=== PATIENT | female | born 1990 | race Caucasian/White ===

== ENCOUNTER 2018-01-12 05:38 | Day surgery (SDC) | payer OTHER ==
[~2018-01-12] VITALS: Ht 152.4 cm; Wt 75.4 kg
[2018-01-12 06:28] LABS: HEMATOCRIT 43.5 % (36.0-46.0); HEMOGLOBIN 15.1 G/DL (11.9-15.5); MCH 31.5 PG (29.0-34.0); MCHC 34.7 G/DL (30.0-36.0); MCV 90.6 FL (83-99); PLATELET COUNT 229 K/uL (156-360); RBC DIS.WIDTH-CV 12.1 % (11.8-14.6); RBC DIS.WIDTH-SD 40.2 % (39-53); WHITE BLOOD COUNT 7.8 K/uL (4.1-10.2)
[2018-01-12 06:37] VITALS: BP 132/77
[2018-01-12 06:38] LABS: ALBUMIN 4.4 g/dL (3.2-4.8); CHLORIDE 107 mEq/L (99-109); POTASSIUM 3.8 mEq/L (3.7-5.4); SODIUM 140 mEq/L (136-147)
[2018-01-12 06:39] LABS: AMYLASE 76 IU/L (1-118)
[2018-01-12 06:41] LABS: GLUCOSE 97 mg/dL (70-99); TOTAL PROTEIN 6.7 g/dL (6.4-8.3)
[2018-01-12 06:43] LABS: TOTAL BILIRUBIN 0.4 mg/dL (0.0-1.0)
[2018-01-12 06:44] LABS: ALKALINE PHOSPHATASE 107 IU/L (3-129); CREATININE 0.8 mg/dL (0.6-1.3); GFR ESTIMATE (CALCULATED) > 59 mL/min/
[2018-01-12 06:45] LABS: UREA NITROGEN (BUN) 12 mg/dL (9-23)
[2018-01-12 06:46] LABS: AST (GOT) 17 IU/L (2-34)
[2018-01-12 06:47] LABS: ALT (GPT) 12 IU/L (3-49)
[2018-01-12 06:48] LABS: LIPASE 57 U/L (1.0-51.0)
[2018-01-12 06:54] LABS: QUANTITATIVE HCG 8.3 MIU/ML
[2018-01-12] MEDS ORDERED: PRILOSEC OTC20 MG PO (06:57)
[2018-01-12] MEDS ORDERED: VYVANSE30 MG PO (06:58)
[2018-01-12] MEDS ORDERED: PROZAC20 MG PO (06:59)
[2018-01-12 07:32] LABS: BILIRUBIN NEGATIVE; BLOOD NEGATIVE; COLOR YELLOW ((YELLOW)); GLUCOSE (STRIP) NEGATIVE; KETONES NEGATIVE; LEUKOCYTES NEGATIVE; NITRITE NEGATIVE; PROTEIN (STRIP) 30; SPECIFIC GRAVITY 1.028 (1.000-1.030)
[2018-01-12 07:33] LABS: APPEARANCE CLOUDY ((CLEAR))
[2018-01-12 07:37] LABS: EPITHELIAL CELLS 4+ /HPF; MUCUS 2+ /LPF
[2018-01-12 07:38] LABS: RED BLOOD CELLS NONE SEEN /HPF (0-5)
[2018-01-12 07:39] LABS: BACTERIA 2+ /HPF
== END 2018-01-12 08:24 | disposition home or self-care (01) ==
LOC: SDC 05:38
PROVIDERS: Surgery
DX: K80.20 Calculus of gallbladder without cholecystitis without obstruction (principal); Z32.01 Encounter for pregnancy test, result positive; Z53.09 Procedure and treatment not carried out because of other contraindication
CPT/HCPCS: 80053; 81003; 82150; 83690; 84702; 85027; J0131; J0330; J1100; J1170; J2250; J3010

== ENCOUNTER 2018-02-04 07:12 | Day surgery (SDC) | payer OTHER ==
[~2018-02-04] VITALS: Ht 154.9 cm; Wt 74.4 kg
[~2018-02-04 07:12] MED LIST: PRILOSEC OTC20 MG PO; PROZAC20 MG PO; VYVANSE30 MG PO
[2018-02-04] MEDS ORDERED: XYZAL5 MG PO (07:43)
[2018-02-04 07:50] VITALS: BP 118/74
[2018-02-04] MEDS ORDERED: NORCO 5/3251 TABLET PO (10:18)
[2018-02-04 11:55] VITALS: BP 132/82
[2018-02-04 13:04] VITALS: BP 126/64
[2018-02-04 14:56] VITALS: BP 112/78
== END 2018-02-04 14:55 | disposition home or self-care (01) ==
LOC: SDC 07:12
DX: K80.10 Calculus of gallbladder with chronic cholecystitis without obstruction (principal); K42.9 Umbilical hernia without obstruction or gangrene; R59.0 Localized enlarged lymph nodes; K40.20 Bilateral inguinal hernia, without obstruction or gangrene, not specified as recurrent; K66.0 Peritoneal adhesions (postprocedural) (postinfection); F41.1 Generalized anxiety disorder; E66.9 Obesity, unspecified; Z68.30 Body mass index [BMI] 30.0-30.9, adult
CPT/HCPCS: 88302; 88304; J0131; J1100; J1170; J1885; J2250; J2405; J2710; J3010; J7643; Q0175; S0074